=== PATIENT | male | born 1960 | race Caucasian/White ===

== ENCOUNTER → 2016-04-26 | Outpatient (CLI) | payer OTHER ==
--- NOTE | 2016-04-26 10:58 | KCIC ---
MR LUMBAR SPINE HISTORY:Reason For StudyReason: LOW BACK PAIN, RT LEG WEAKNESS / Spl. Instructions: / History: Bending injury 03/24/16 COMPARISON: None Technique: Sagittal T2, sagittal STIR, and sagittal T1-weighted images were obtained. Additional axial T1 and T2 weighted imaging was also performed. FINDINGS: Vertebral body height and alignment is maintained throughout the lumbar spine. There is a normal lumbar lordosis. No abnormal bone marrow signal is seen. The conus is in normal position without abnormal signal.Paravertebral soft tissues are unremarkable. Visualized intra-abdominal contents are within normal limits. At L5-S1 there is a small disc bulge. There is a fissure within the posterior annulus fibrosus of the disc. No spinal stenosis. At L4-L5 there is a broad-based disc bulge and a fissure within the posterior annulus fibrosus. No spinal stenosis. IMPRESSION: Degenerative disc disease at L5-S1 and L4-L5 with no central spinal or neural foraminal stenosis. Electronically signed by: Juvencio Bhardwaj (Apr 26, 2016 10:57:05)
== END | disposition home or self-care (01) ==
LOC: KCIC MRI 07:39
PROVIDERS: ATTEND Family Medicine
DX: M54.5 Low back pain (principal); M62.81 Muscle weakness (generalized); M51.37 Other intervertebral disc degeneration, lumbosacral region
CPT/HCPCS: 72148

== ENCOUNTER → 2016-10-22 | Outpatient (CLI) | payer OTHER ==
--- NOTE | 2016-10-22 12:52 | RAD ---
APPROVED REPORT Test Type: Exercise Stress Nurse/Tech: Miladys Cole RN Test Indications: chest pain Cardiac History: HTN, SEE EHR Medications: SEE EHR Medical History: NONE STATED, SEE EHR Resting ECG: SR Resting Heart Rate: 59 bpm Resting Blood Pressure: 134/79mmHg Pretest Chest Pain: No chest pain Nurse/Tech Notes LUNG SOUNDS CLEAR, S1S2 WNL. Consent: The procedure was explained to the patient in lay terms. Informed consent was witnessed. Toan ced was entered into [employer]. History and Stress Test performed by YAN Mejias Stress Symptoms LEG FATIGUE, SOA, PT AT FULL WORK LOAD OF BREATHING, PT WOULD NOT HAVE TOLERATED NEXT STAGE. PT STATE D DULL ACHE TO LOWER CENTER CHEST AFTER EXERCISE AND THROUGHOUT RECOVERY. POST EXERCISE Reason for Termination: Reached target heart rate Target HR: 141 Max HR: 160 bpm 113% of Maximum Predicted HR: 141 bpm Exercise duration: 9:00 min:sec, 3 Stage Exercise capacity: 10.0METs Max Blood Pressure: 152/81mmHg Blood Pressure response to exercise: Normal blood pressure response during stress. Heart Rate response to exercise: WNL Chest Pain: No. DULL ACHE MORE PRESSURE LIKE Arrhythmia: No. ST Change: No. INTERPRETATION Stress EKG Conclusion: Baseline EKG showed sinus rhythm. No ischemic changes at peak stress. No arr hythmias. Imaging Protocol IMAGE PROTOCOL: Rest Tc-99m/stress Tc-99m 1 day Rest: Stress: Viability: Radiopharm.Tc99m QismftcrrUb82u Sestamibi Iemg23hOg 34mCi Duration 15min. 12min. Img Date 10/22/2016 10/22/2016 Inj-Img Tkez80xce. 60min. Rest Admin Site:IV - Right AntecubitalAdministrator:RT Octaviano (R)(N) Stress Admin Site: IV - Right AntecubitalAdministrator: YAN Mejias STRESS DATA End Diast. Vol.102.0mlAv. Heart Rate70.0bpm End Syst. Vol.31.0mlCO Index BSA0.0L/min Myocardial Njos760.0gEject. Pqurbtuw42.0% Stress Rates Pk. Fill Rate2.34EDV/secLVtime Pk. Fill 272.94msec Pk. Empty Rate4.54ESV/secLVtime Pk. Nfuvd981.24msec 1/3 Pk. Fill1.22EDV/sec Stress Scores Regional WT0.00Summed WT0.00 Regional WM0.00Summed WM0.00 Study quality was good. Left Ventricular size was Normal at Rest and Stress. Lung uptake was Normal. Left Ventricular ejection fraction is 70%. The rest and stress images show normal perfusion, normal contraction and thickening. LV Perf. Quant 17 Seg. SSS0.00 17 Seg. SRS0.00 17 Seg. SDS0.00 Stress Defect Extent (% LAD)0.00Rest Defect Extent (% LAD)0.00Rev. Defect Extent (% LAD)0.00 Stress Defect Extent (% LCX) 0.00Rest Defect Extent (% LCX)0.00Rev. Defect Extent (% LCX)0.00 Stress Defect Extent (% RCA)0.00Rest Defect Extent (% RCA)0.00Rev. Defect Extent (% RCA)0.00 Stress Defect Extent (% LUPE)0.00Rest Defect Extent (% LUPE)0.00Rev. Defect Extent (% LUPE)0.00 Conclusion 1. Treadmill exercise cardioisotope stress test did not show any evidence of ischemia or infarct. 2. Normal left ventricular systolic function with ejection fraction calculated at 70%. 3. Patient had excellent activity tolerance. Low risk for cardiac events.
== END | disposition home or self-care (01) ==
LOC: NM 08:56
PROVIDERS: ATTEND Internal Medicine Cardiovascular Disease
DX: R07.9 Chest pain, unspecified (principal); I10 Essential (primary) hypertension
CPT/HCPCS: 78452; 93017; 96374; 96376; A9500

== ENCOUNTER → 2016-11-22 | Outpatient (CLI) | payer OTHER ==
--- NOTE | 2016-11-22 10:29 | CARD ---
APPROVED REPORT EXAM: Two-dimensional and M-mode echocardiogram with Doppler and color Doppler. Other Information Quality : GoodHR: 57bpm Rhythm : Bradycardia INDICATION Murmur RISK FACTORS Hypertension Family History Pt. C/o chest pain, Previous smoker 2D DIMENSIONS RVDd3.5 (2.9-3.5cm)Left Atrium(2D)4.5 (1.6-4.0cm) IVSd1.1 (0.7-1.1cm)Aortic Root(2D)3.8 (2.0-3.7cm) LVDd4.4 (3.9-5.9cm)LVOT Diameter2.4 (1.8-2.4cm) PWd1.1 (0.7-1.1cm)LVDs2.5 (2.5-4.0cm) LVEF(%)69.0 (>50%) M-Mode DIMENSIONS LVDd4.96 (4.0-5.6cm)FS (%) 38 % LVDs3.05 (2.0-3.8cm)ESV(Teich)36.6 ml LVEF(%)69 (>50%) Aortic Valve AoV Peak Terry.157.6cm/sAoV VTI36.9cm AO Peak GR.9.9mmHgLVOT Peak Terry.111.2cm/s AO Mean GR.6mmHgAVA (VMAX)3.09cm2 Mitral Valve MV E Bpnscfgs70.1cm/sMV E Peak Gr.6mmHg MV DECEL [id number] A Jzqckeea055.7cm/s MV E Mean Gr.1mmHgE/A Ratio0.8 MV A Segxcdqg147ih Pulmonary Valve PV Peak Buxgfsfr475.6cm/s Tricuspid Valve TR P. Wkmvvupy385qg/sTR Peak Gr.29mmHg Pulmonary Vein S1 Rpqfjcnp97.4cm/sD2 Avwszsnl92.8cm/s PVa qifcbegj563owup LEFT VENTRICLE The left ventricle is normal size. There is borderline concentric left ventricular hypertrophy. The l eft ventricular systolic function is normal. The Ejection Fraction is 65-70%. There is normal LV segm ental wall motion. Transmitral Doppler flow pattern is Grade I-abnormal relaxation pattern. RIGHT VENTRICLE The right ventricle is normal size. There is normal right ventricular wall thickness. The right ventr icular systolic function is normal. ATRIA The left atrium is mildly dilated. The right atrium size is normal. The interatrial septum is intact with no evidence for an atrial septal defect or patent foramen ovale as noted on 2-D or Doppler imagi ng. AORTIC VALVE The aortic valve is mildly thickened. The aortic valve is trileaflet. Doppler and Color Flow revealed no significant aortic regurgitation. There is no significant aortic valvular stenosis. MITRAL VALVE The mitral valve leaflets are mildly thickened. There is no evidence of mitral valve prolapse. There is no mitral valve stenosis. Doppler and Color Flow revealed trace mitral regurgitation. TRICUSPID VALVE Doppler and Color Flow revealed trace tricuspid regurgitation. The pulmonary artery systolic pressure is estimated at 32 mmHg. There is mild pulmonary hypertension. PULMONIC VALVE The pulmonary valve is not well visualized but appears to open adequately. Doppler and Color Flow rev ealed trace pulmonic valvular regurgitation. There is no pulmonic valvular stenosis by spectral Doppl er. GREAT VESSELS The aortic root is mildly enlarged. The ascending aorta is normal in size. The pulmonary artery is no rmal. The IVC is normal in size and collapses >50% with inspiration. PERICARDIAL EFFUSION There is no evidence of significant pericardial effusion. Critical Notification Critical Value: No <Conclusion> The left ventricular systolic function is normal. The Ejection Fraction is 65-70%. There is normal LV segmental wall motion. Transmitral Doppler flow pattern is Grade I-abnormal relaxation pattern. The left atrium is mildly dilated. Trace mitral regurgitation. Trace tricuspid regurgitation. The pulmonary artery systolic pressure is estimated at 32 mmHg. There is no evidence of significant pericardial effusion.
== END | disposition home or self-care (01) ==
LOC: ECHO 08:48
PROVIDERS: ATTEND Internal Medicine Cardiovascular Disease
DX: I51.7 Cardiomegaly (principal); I27.2 Other secondary pulmonary hypertension
CPT/HCPCS: 93306